=== PATIENT | female | born 1980 | race Caucasian/White ===

== ENCOUNTER 2018-12-21 12:04 | Inpatient (IN) | payer OTHER ==
[~2018-12-21] VITALS: Ht 144.8 cm; Wt 66.9 kg
[2018-12-21 12:13] VITALS: Ht 144.8 cm; Wt 66.9 kg
--- NOTE | 2018-12-21 12:40 | TRIAGE ---
OB Triage Datetime Report Generated by CPN: 12/21/2018 12:39 Datetime: 12/21/2018 12:17 Maternal Assessment Level of Consciousness: Fully Conscious DTR's/Clonus: DTRs 1+ Headache: Denies Blurred Vision: No Respiratory Effort: Unlabored Breath Sounds, Left: Clear and Equal Breath Sounds, Right: Clear and Equal Nausea/Vomiting: Denies RUQ Epigastric Pain: Denies Facial Edema: None Labor Evaluation Frequency: 3-4 Monitor Mode: External Duration (sec)2399: 60-70 Quality: Mild Pattern: Normal: <= 5 Contractions in 10 Minutes Resting Tone [place]: Relaxed Heart Rate FHR Baseline Rate: 130 Monitor Mode: External US Variability: Moderate 6-25 bpm Accelerations: 15X15 Decelerations: None Category: Category I Pain Assessment Pain Scale: 0 Pain Presence: None/Denies Pain Type: N/A Pain Goal: 3 Membrane Status: Intact Datetime: 12/21/2018 12:11 Vaginal Exam Dilatation (cms): 2.0 Effacement (%): 50 Station: -2 Exam By: LILIBETH PETER Vaginal Bleeding: None Cervix, Consistency: Soft Cervix, Position: Posterior Presentation 'A': Cephalic Datetime: 12/21/2018 12:10 Assessment Type: Triage Maternal Assessment Level of Consciousness: Fully Conscious DTR's/Clonus: DTRs 2+; No Clonus Headache: Denies Blurred Vision: No Respiratory Effort: Unlabored; Regular Rhythm; Equal Expansion Breath Sounds, Left: Clear and Equal Breath Sounds, Right: Clear and Equal Nausea/Vomiting: Denies RUQ Epigastric Pain: Denies Lower Extremities Edema: None Degree: None Upper Extremities Edema: None Degree: None Facial Edema: None Fall Risk Assessment History of Falling: (0) No Secondary Diagnosis: (0) No Ambulatory Aid: (0) Bedrest/Nurse Assist IV Therapy: (0) No Gait: (0) Normal/Bedrest/Immobile Mental Status: (0) Oriented to Own Ability Fall Score: 0 Fall Risk Score Definition: No Risk: No action required Datetime: 12/21/2018 11:53 Time of Arrival: 12/21/2018 11:53 EGA: 37.5 Arrived By: Ambulatory Arrived From: Office Chief Complaint: PT CAME IN FROM CLINIC TO R/O PIH Movement: Present Contractions: Denies/Absent Rupture of Membranes: Denies Vaginal Discharge: Denies Recent Sexual Intercouse: Denies Abdominal Trauma: Not Applicable Additional Patient Complaints: NONE Time Provider Notified: 12/21/2018 12:37 Provider Notified: HADADIAN Initial Plan: PIH PANEL, NST AND BPP
[2018-12-21] MEDS ORDERED: MISOPROSTOL 200 MCG TAB PR PRN (14:00)
[2018-12-21] MEDS ORDERED: OXYTOCIN 30 UNITS/LR 500 ML IV PRN (14:00)
[2018-12-21] MEDS ORDERED: LIDOCAINE 1% (MPF) 30 ML INJ INJ PRN (14:00)
[2018-12-21] MEDS ORDERED: METHYLERGONOVINE 0.2 MG INJ IM PRN (14:00)
[2018-12-21] MEDS ORDERED: CARBOPROST 250 MCG INJ IM PRN (14:00)
[2018-12-21] MEDS ORDERED: BUTORPHANOL 2 MG INJ IV PRN (14:00)
[2018-12-21] MEDS ORDERED: OXYTOCIN 30 UNITS/LR 500 ML IV SCH ×3 (14:00)
[2018-12-21] MEDS: LACTATED RINGER'S 1,000 ML IV SCH (14:10)
[2018-12-21] MEDS: DEXTROSE 5%-LR 1,000 ML IV SCH (15:09)
--- NOTE | 2018-12-21 19:30 | HP ---
Date/Time of Note Date/Time of Note DATE: 12/21/18 TIME: 19:24 OB - History Hx of Present Free Text/Dictation 38 years old -0-1-3 with single intrauterine at 37 weeks and 5 days with a 1 gestational diabetes and gestational hypertension was seen in clinic for visit today and was noted to have elevated blood pressure of 147/101, repeat one was 147/98. She states good movement. She denies nausea, vomiting, shortness of breath, chest pain, headache, visual changes, vaginal bleeding or LOF. Chief Complaint: Elevated blood pressure Estimated Due Date: Jan 06, 2019 : 5 Para: 3 Spontaneous : 1 Therapeutic : 0 Care: Good Care Obstetrical Complications: Gestational Diabetes, Gestational Hypertension Past Family/Social History * Past Medical, Surgical, Family and Obstetric Histories reviewed from chart. Blood Type: O- Rubella: immune RPR/VDRL: Negative GBS Status: Negative HBsAG: Negative OB Admission Exam Vital Signs Vital Signs Blood pressure 144/96, pulse rate 78/minutes, respiratory rate 16/minutes, temperature 98.6 Physical Exam HEENT: WNL Heart: Rhythm Normal Lungs: Clear Abdomen: WNL Extremities: Normal Reflexes: Normal Cervical Dilatation: 2cm Effacement: 50% Station: -2 Membranes: Intact Heart Rate: 140's Accelerations: Accelerations Present Decelerations: No Decelerations Varibility: Marked Contractions on Admission: < 5 Minutes Apart Intensity: Mild Last 72 hourBlood Glucose Bedside Glucose - 72 Hours Test 12/21/18 18:29 Bedside Glucose 92 mg/dL (70-220) Last 72 hours Lab Results CBC & BMP 12/21/18 11:46 12/21/18 13:14 Liver Function Test 12/21/18 11:46 Alanine Aminotransferase (ALT/SGPT) 14 Albumin 3.6 Alkaline Phosphatase 291 H Aspartate Amino Transf (AST/SGOT) 26 Direct Bilirubin 0.00 Total Protein 6.9 OB Assessment/Plan Other plan: 38 years old -0-1-3 with single intrauterine at 37 weeks and 5 days with A1 gestational diabetes and gestational hypertension -FHR: No sign of metabolic acidosis- Category I -Continuous EFM, toco -CBC, blood type and screen -Augmentation of labor with pitocin -Analgesia options with R/B/A discussed in detail with patient -Epidural per patient request -Please see the orders -O Neg/Rubella: Immune -GBS: Negative Admission, procedures, expectations, risks and possible complications have been discussed in detail with the patient. Risk of vaginal delivery including but not limited to bleeding, infection, cervical laceration, placental retention, injury to fetus, blood transfusion, blood transfusion related infection, risk of anesthesia, adhesion, cervical laceration, episiotomy/laceration, possible delivery with risk of bleeding, infection, injury to other organs (bowel, bladder, ureter, vessels, nerves), injury to fetus, blood transfusion, blood transfusion related infection, risk of anesthesia, scar and hernia formation, needs for future , removal of uterus or any other indicated surgery discussed with the patient. She expressed understanding and repeats the risks. All of her questions were answered. She signed the informed consent. PHYSICIAN'S VERIFICATION OF INFORMED CONSENT The patient was counseled regarding the procedure, its indications, risks, potential complications and alternatives and any questions were answered. Cons ent was obtained. PLANNED PROCEDURE/TREATMENT: Vaginal delivery, episiotomy, repair of laceration possible delivery RANJITH DAMON December 21, 2018 19:30
[2018-12-22] MEDS ORDERED: MINERAL OIL LIGHT 10 ML VIAL TOP PRN (02:00)
[2018-12-22] MEDS: LACTATED RINGER'S 1,000 ML IV SCH ×2 (05:15→13:04)
[2018-12-22] MEDS: DEXTROSE 5%-LR 1,000 ML IV SCH ×2 (07:32→18:50)
[2018-12-22] MEDS ORDERED: FENTAnyl 50 MCG/ML VIAL ONE (12:37)
[2018-12-22] MEDS ORDERED: FENTAnyl 2MCG/ML-ROPIV 0.2% 100 ML ONE (12:37)
--- NOTE | 2018-12-22 12:41 | PREAC ---
Date/Time of Note Date/Time of Note DATE: 12/22/18 TIME: 12:41 Anesthesia Eval and Record Evaluation Time Pre-Procedure Interview DATE: 12/22/18 TIME: 12:41 Age 38 Sex female NPO: Other Preoperative diagnosis labor pain Planned procedure epidural Past Medical History Past Medical History: Includes Endo: Diabetes (gestational ) Surgery & Anesthesia Issues No known issue Meds Anticoagulation: No Beta Jhonny within 24 hr: No Reason Beta Jhonny not given: Pt. not on B-Jhonny Current Medications Lactated Ringer's 1,000 ml @ 125 mls/hr Q8H IV Last administered on 12/22/18at 05:15; Admin Dose 125 MLS/HR; Start 12/21/18 at 13:43 Butorphanol Tartrate (Stadol) 2 mg Q2H PRN IV .PAIN SCALE 6-10; Start 12/21/18 at 14:00 Lidocaine (Xylocaine 1% (Mpf)) 30 ml ONCE PRN INJ .EPISIOTOMY; Start 12/21/18 at 14:00 Oxytocin/Lactated Ringer's 500 ml @ 500 mls/hr ONCE POST IV ; Start 12/21/18 at 14:00 Oxytocin/Lactated Ringer's 500 ml @ 125 mls/hr POST IV ; Start 12/21/18 at 14:00 Oxytocin/Lactated Ringer's 500 ml @ 0 mls/hr ONCE PRN IV .VAGINAL BLEEDING; Start 12/21/18 at 14:00 Methylergonovine Maleate (Methergine) 0.2 mg ONCE PRN IM .VAGINAL BLEEDING; Start 12/21/18 at 14:00 Carboprost Tromethamine (Hemabate) 250 mcg ONCE PRN IM .VAGINAL BLEEDING; Start 12/21/18 at 14:00 Misoprostol (Cytotec) 1,000 mcg ONCE PRN OR .VAGINAL BLEEDING; Start 12/21/18 at 14:00 Oxytocin/Lactated Ringer's 500 ml @ 0 mls/hr FOR AUGMENTATION IV Last administered on 12/21/18at 15:11; Admin Dose 1 MLS/HR; Start 12/21/18 at 14:00 Dextrose/Lactated Ringer's 1,000 ml @ 125 mls/hr Q8H IV Last administered on 12/22/18at 07:32; Admin Dose 125 MLS/HR; Start 12/21/18 at 14:01 Mineral Oil (Muri-Lube) 20 ml ONCE PRN TOP FOR DELIVERY; Start 12/22/18 at 02:00; Stop 12/23/18 at 01:59 Meds reviewed: Yes Allergies Coded Allergies: No Known Allergy (Unverified , 12/21/18) Allergies Reviewed: Yes Labs/Studies Labs Reviewed: Reviewed by anesthesiologist Result Diagram: 12/21/18 1146 12/21/18 1314 Laboratory Tests 12/21/18 13:14 Blood Bank Test 12/21/18 13:14 Antibody Screen NEGATIVE Blood Type O NEGATIVE Rh Immune Globulin Candidate NO test: N/A Pre-procedure Exam Airway: Adequate mouth opening, Adequate thyromental dist Mallampati: Mallampati IV Teeth: Normal Lung: Normal Heart: Normal ASA Physical Status ASA physical status: 2 Emergency: None Pre-operative Attestations Prior to commencing anesthesia and surgery, the patient was re-evaluated, there was verification of: *The patient's identity *The results of appropriate recent lab work and preoperative vital signs *The above evaluation not changing prior to induction *Anesthetic plan, risk benefits, alternative and complications discussed with patient/family; questions answered; patient/family understands, accepts and wishes to proceed. SHANEKA CRAWFORD DO December 22, 2018 12:41
[2018-12-22] MEDS ORDERED: NALOXONE (0.4 MG/ML) INJ IV PRN (13:00)
[2018-12-22] MEDS ORDERED: FENTAnyl 2MCG/ML-ROPIV 0.2% 100 ML BAG EPI SCH (13:00)
[2018-12-22] MEDS ORDERED: MISOPROSTOL 200 MCG TAB PO ONE (16:00)
[2018-12-22] MEDS ORDERED: MAGNESIUM SULFATE 4 GM/100 ML 100 ML IV SCH (17:00)
[2018-12-22] MEDS: MAGNESIUM SULFATE 20 GM/500 ML 500 ML IV SCH (17:26)
[2018-12-22 18:40] VITALS: BP 149/94; PULSE 109; RESP 18
[2018-12-22] MEDS: LACTATED RINGER'S 1,000 ML IV* SCH (18:50)
[2018-12-22] MEDS ORDERED: OXYTOCIN 30 UNITS/LR 500 ML IV SCH (18:50)
[2018-12-22 19:00] VITALS: BP 125/74; PULSE 100; RESP 19
[2018-12-22] MEDS ORDERED: MISOPROSTOL 200 MCG TAB PR PRN (19:00)
[2018-12-22] MEDS ORDERED: SENNA/DOCUSATE NA (8.6MG/50MG) TAB PO PRN (19:00)
[2018-12-22] MEDS ORDERED: DIBUCAINE 1% 30 GM OINT TOP PRN (19:00)
[2018-12-22] MEDS ORDERED: BENZOCAINE 20% 56 ML SPRAY TOP PRN (19:00)
[2018-12-22] MEDS ORDERED: OXYTOCIN 30 UNITS/LR 500 ML IV PRN (19:00)
[2018-12-22] MEDS ORDERED: ACETAMINOPHEN 325 MG TAB PO PRN (19:00)
[2018-12-22] MEDS ORDERED: CARBOPROST 250 MCG INJ IM PRN (19:00)
[2018-12-22] MEDS ORDERED: LANOLIN HPA 1 PKT TOP PRN (19:00)
[2018-12-22] MEDS ORDERED: OXYCODONE/ASPIRIN (4.88/325) TAB PO PRN (19:00)
[2018-12-22] MEDS ORDERED: WITCH HAZEL/GLYCERIN PAD PR PRN (19:00)
[2018-12-22] MEDS ORDERED: METHYLERGONOVINE 0.2 MG INJ IM PRN (19:00)
[2018-12-22] MEDS ORDERED: DIPHENHYDRAMINE 50 MG INJ IV PRN (19:00)
[2018-12-22] MEDS ORDERED: ZOLPIDEM 5 MG TAB PO PRN (19:00)
[2018-12-22] MEDS ORDERED: ONDANSETRON 4 MG INJ IV PRN (19:00)
[2018-12-22 20:00] VITALS: BP 124/73; PULSE 113; RESP 18
[2018-12-22 21:00] VITALS: BP 133/72; PULSE 112; RESP 18
[2018-12-22 22:00] VITALS: BP 131/76; PULSE 102; RESP 18
[2018-12-22 23:00] VITALS: BP_SYST 131; BP_SYST 135; BP_DIAS 73; BP_DIAS 74; PULSE 102; PULSE 103; RESP 18; RESP 20
--- NOTE | 2018-12-22 23:56 | PAC ---
Date/Time of Note Date/Time of Note DATE: 12/22/18 TIME: 23:56 Post-Anesthesia Notes Post-Anesthesia Note Last documented vital signs Vital Signs Date Temp Pulse Resp B/P (MAP) Pulse Ox O2 O2 Flow FiO2 Time Delivery Rate 12/22/18 98.6 102 18 135/73 98 Room Air 23:00 (93) Activity: WNL Respiratory function: WNL Cardiovascular function: WNL Mental status: Baseline Pain reasonably controlled: Yes Hydration appropriate: Yes Nausea/Vomiting absent: Yes SHANEKA CRAWFORD DO December 22, 2018 23:56
[2018-12-23] VITALS (18 sets, daily range): BP systolic 119–139; BP diastolic 56–75; PULSE 76–103; RESP 18–20
[2018-12-23] MEDS: IBUPROFEN 600 MG TAB PO SCH ×5 (00:19→23:38)
--- NOTE | 2018-12-23 01:41 | PN ---
Date/Time of Note Date/Time of Note DATE: 12/23/18 TIME: 01:36 OB Subjective Subjective Subjective PPD# 1 Patient is doing well. She denies nausea, vomiting, shortness of breath, chest pain, headache. She has been ambulating without difficulty, tolerating regular diet. Pain is well controlled on current medications OB Objective Objective Objective VS - Last 72 Hours, by Label Date Temp Pulse Resp B/P (MAP) Pulse Ox O2 O2 Flow FiO2 Time Delivery Rate 12/23/18 97.9 98 19 121/62 97 Room Air 01:01 (81) 12/23/18 98.0 103 20 131/74 97 Room Air 00:00 (93) 12/22/18 98.6 102 18 135/73 98 Room Air 23:00 (93) 12/22/18 99.1 102 18 131/76 96 Room Air 22:00 (94) 12/22/18 98.7 112 18 133/72 97 Room Air 21:00 (92) 12/22/18 99.4 113 18 124/73 97 Room Air 20:00 (90) 12/22/18 98.4 100 19 125/74 Room Air 19:00 (91) 12/22/18 98.5 109 18 149/94 Room Air 18:40 (112) General: AAO X 3, comfortable, NAD, appropriate mood and affect. ABD: +BS. Soft, non-tender. Uterus 2 cm below umbilicus Flank: No CVA tenderness (B/L) LE: Mild edema. No clubbing, cyanosis, thigh or calf tenderness (B/L). Homans 'sign is negative OB Assessment/Plan Other plan: 38 years old [id number] with gestational diabetes A1 and gestational hypertension s/p normal vaginal delivery at 37 weeks and 6 days. PPD#1 - AF, VSS - Baby is doing well, at bed side. She is bonding well - Contraception methods with R/B/A/FR discussed - Continue care - Discharge home tomorrow - Rx and instruction given - Follow up in 2 and 6 weeks at clinic 2) A1 gestational diabetes: Significance of performing 75 g 2-hour glucose test at 6-12 weeks after delivery discussed with patient. 3) Gestational hypertension: She is currently doing well, blood pressures are within normal limits. Observe her closely RANJITH DAMON December 23, 2018 01:41
--- NOTE | 2018-12-23 01:45 | LDN ---
Date/Time of Note Date/Time of Note DATE: 12/23/18 TIME: 01:41 Delivery Summary Late entry note. Patient delivered at 1531 on 12/22/2018 38 years old -0-1-3 with gestational diabetes A1 and gestational hypertension at 37 weeks and 6 days delivered a viable female over intact perineum. Nose and mouth suctioned. Rest of body delivered. Baby given to the nurse. Placenta delivered spontaneously and intact with three-vessel cord. Patient tolerated procedure well. Time of delivery 15:31 Weight 2955 gram-6 pound 8 ounces Height 19 inches 9 at 1 minutes and 9 at 5 minutes EBL 150 mL Weeks of Gestation 37 weeks and 6 days Placenta Delivered: Spontaneously Meconium: none Episiotomy: No Estimated blood loss: 150 Sponge & Needle done & correct: Yes All needle counts correct: Yes Any foreign bodies felt in the: No Infant Delivery Information Sex Infant Sex: female Apgars 1 Minute: 9 5 Minute: 9 10 Minute: 10 Suctioning Nose & mouth suctioned at [place]: Yes Umbilical Cord Umbilical cord with: 3 Vessels Cord Blood was obtained: Yes Mother & Baby Disposition Disposition Mom & Baby to Maternity; Good: Yes RANJITH DAMON December 23, 2018 01:45
[2018-12-23] MEDS: LACTATED RINGER'S 1,000 ML IV* SCH ×3 (02:50→18:50)
[2018-12-23] MEDS: DEXTROSE 5%-LR 1,000 ML IV SCH ×3 (02:50→18:50)
[2018-12-23] MEDS: MAGNESIUM SULFATE 20 GM/500 ML 500 ML IV SCH ×2 (03:13→17:00)
--- NOTE | 2018-12-23 18:50 | PN ---
Date/Time of Note Date/Time of Note DATE: 12/23/18 TIME: 18:48 OB Subjective Subjective Subjective breast-feeding. Has not been out of the bed yet since she has been on magne sium.. Reports decreased vaginal bleeding. Ambulating. Denies any headache, epigastric pain right upper quadrant pain. OB Objective Objective Objective VS - Last 72 Hours, by Label Date Temp Pulse Resp B/P (MAP) Pulse Ox O2 O2 Flow FiO2 Time Delivery Rate 12/23/18 97.6 86 18 132/72 97 Room Air 10:00 (92) 12/23/18 86 18 121/58 Room Air 09:00 (79) 12/23/18 97.4 83 18 124/60 96 Room Air 08:00 (81) 12/23/18 97.4 86 20 129/65 96 06:00 (86) 12/23/18 97.4 76 18 121/59 96 05:00 (79) 12/23/18 97.6 78 19 129/62 97 04:00 (84) 12/23/18 97.6 80 19 122/63 97 03:00 (82) 12/23/18 95 18 121/63 98 02:00 (82) 12/23/18 97.9 98 19 121/62 97 Room Air 01:01 (81) 12/23/18 98.0 103 20 131/74 97 Room Air 00:00 (93) 12/22/18 98.6 102 18 135/73 98 Room Air 23:00 (93) 12/22/18 99.1 102 18 131/76 96 Room Air 22:00 (94) 12/22/18 98.7 112 18 133/72 97 Room Air 21:00 (92) 12/22/18 99.4 113 18 124/73 97 Room Air 20:00 (90) 12/22/18 98.4 100 19 125/74 Room Air 19:00 (91) 12/22/18 98.5 109 18 149/94 Room Air 18:40 (112) Appearance: Alert and oriented x4 does not appear to be in any acute distress Abdomen: Soft, gravid, fundus palpable nontender at the level of umbilicus Breast: No evidence of mastitis or fissure Extremities: No cord palpable no calf tenderness no edema SCDs are on Lungs: Clear to auscultation bilaterally CV RRR Laboratory Tests Test 12/23/18 00:42 12/23/18 06:48 12/23/18 12:32 Magnesium Level 4.7 H 6.1 *H 5.4 *H White Blood Count 12.0 H Red Blood Count 4.30 Hemoglobin 12.9 Hematocrit 38.8 Mean Corpuscular Volume 90.2 Mean Corpuscular Hemoglobin 30.0 Mean Corpuscular Hemoglobin Concent 33.2 Red Cell Distribution Width 13.2 Platelet Count 167 Mean Platelet Volume 11.3 H Immature Granulocytes % 0.500 H Neutrophils % 77.6 H Lymphocytes % 16.3 Monocytes % 5.0 Eosinophils % 0.3 Basophils % 0.3 Nucleated Red Blood Cells % 0.0 Immature Granulocytes # 0.060 H Neutrophils # 9.3 H Lymphocytes # 2.0 Monocytes # 0.6 Eosinophils # 0.0 Basophils # 0.0 Nucleated Red Blood Cells # 0.0 OB Assessment/Plan Other Assessment: Status post On magnesium due to elevated blood pressure and preeclampsia No evidence of mag toxicity Asymptomatic Adequate urine output Will stop magnesium 24 hours after started Routine care Continue watching blood pressure closely ELIESER GARCIA MD December 23, 2018 18:50
[2018-12-24 03:15] VITALS: BP 120/62; PULSE 75; RESP 17
[2018-12-24] MEDS: IBUPROFEN 600 MG TAB PO SCH ×2 (05:46→12:34)
[2018-12-24 08:00] VITALS: BP 129/90; PULSE 70; RESP 18
[2018-12-24] MEDS ORDERED: MEASLES,MUMPS,RUBELLA VACCINE INJ SC* ONE (09:00)
[2018-12-24] MEDS ORDERED: DIPHTH/TET/ACEL PERTUSS (ADULT) 0.5 ML VIAL IM* ONE (09:00)
--- NOTE | 2018-12-24 10:14 | PD.PPDC ---
GUM DIPPER Discharge Instruction Diagnosis Oavoq1Gp Final Diagnosis: Locii8b s/p GHTN Condition [id number] Patient Condition: Asriq7a Good Diet Ielmx4La Diet: Buhoz6r Resume Regular Diet Activity/Restrictions [id number] Activity: Uxpct8u May Shower Rydtg9Dk Restrictions: Xzxlw1b No Lifting No Sexual Activity Nothing in the Vagina No Ch[place]ar Follow-up Follow-up with Physician: 2, Week/Weeks Return to clinic for [id number] PAD CUTTER Instructions: Tprgm0d Fever greater than 101 Chills Worsening abdominal pain Excessive Vaginal Bleeding More than 2 pads per hour Unable to tolerate diet [id number] OB Instructions: Tbvrc2m Breast Tenderness Depression Blurried Vision Headache KURT SOL MD December 24, 2018 10:14
--- NOTE | 2018-12-24 10:17 | DS ---
Date/Time of Note Date/Time of Note DATE: 12/24/18 TIME: 10:15 Obstetrical Discharge Record Final Diagnosis Final Diagnosis: Term delivered Complications Preg induced Hypertension Induction: Yes Rupture of Membranes: No Condition on Discharge Physical Assessment Last Vitals: VSS afebrile Voiding: Yes Bowel Movement: Yes Breast: Soft, non-tender Fundus: Firm Episiotomy: feet is swollen Calf Tenderness: No Patient Condition: Stable KURT SOL MD December 24, 2018 10:17
--- NOTE | 2018-12-25 15:26 | DELSUM ---
Delivery Summary A-C Datetime Report Generated by CPN: 12/25/2018 15:26 DELIVERY PERSONNEL Valuer: Brooke Wadea MATERNAL INFORMATION Delivery Anesthesia: Epidural Medications in Delivery: pitocin Delivery QBL (ml): 200 Placenta Cultured: No Maternal Complications: Other Other Maternal Complications: High BP's LABOR SUMMARY EDC: 01/06/2019 00:00 No. Babies in Womb: 1 Attempted: No Labor Anesthesia: Epidural LABOR INFORMATION Reason for Induction: Gest. HTN/PreEclam/Eclamp Onset of Labor: 12/22/2018 10:00 Complete Dilatation: 12/22/2018 15:18 Oxytocin: N/A Group B Beta Strep: Negative Antibiotics # of Doses: 0 Steroids Given: None Reason Steroids Not Administered: Not Applicable MEMBRANES Membranes Rupture Method: Artificial Rupture of Membranes: 12/22/2018 11:27 Length of Rupture (hr): 4.07 Amniotic Fluid Color: Clear Amniotic Fluid Amount: Moderate STAGES OF LABOR Stage 1 hr: 5 Stage 1 min: 18 Stage 2 hr: 0 Stage 2 min: 13 Stage 3 hr: 0 Stage 3 min: 2 Total Time in Labor hr: 5 Total Time in Labor min: 33 VAGINAL DELIVERY Episiotomy: None Laceration Extension: N/A Laceration Type: None Laceration Repair: Not Applicable Initial Vag Sponge Count: 10 Final Vag Sponge Count: 10 Initial Vag Sharps Count: 1 Final Vag Sharps Count: 1 Sponge Count Correct: Yes Sharps Count Correct: Yes BABY A INFORMATION Infant Delivery Date/Time: 12/22/2018 15:31 Method of Delivery: Vaginal Born in Route : No : N/A Forceps: N/A Vacuum Extraction: N/A Shoulder Dystocia : N/A SHOULDER DYSTOCIA BABY A Delivery Date/Time: 12/22/2018 15:31 PRESENTATION/POSITION BABY A Presentation: Cephalic Cephalic Presentation: Vertex Vertex Position: Left Occipital Posterior Breech Presentation: N/A PLACENTA INFORMATION BABY A Placenta Delivery Time : 12/22/2018 15:33 Placenta Method of Delivery: Spontaneous Placenta Status: Delivered SCORES BABY A Heart Rate 1 min: >100 bpm Resp Effort 1 min: Good Cry Reflex Irritability 1 min: Cough/Sneeze/Pulls Away Muscle Tone 1 min: Active Motion Color 1 min: Body Spooner, Extremit Blue Resuscitation Effort 1 min: Tactile Stimulation SCORE 1 MIN: 9 Heart Rate 5 min: >100 bpm Resp Effort 5 min: Good Cry Reflex Irritability 5 min: Cough/Sneeze/Pulls Away Muscle Tone 5 min: Active Motion Color 5 min: Body [place], Extremit Blue Resuscitation Effort 5 min: Tactile Stimulation SCORE 5 MIN: 9 INFORMATION BABY A Gestational Age at Delivery: 37.6 Gestational Status: Early Term- 37- 38.6 Weeks Outcome : Liveborn Infant Condition : Stable Infant Sex: Female IDENTIFICATION/MEDS BABY A ID Band Number: [id number] ID Band Location: Right Leg; Left Arm Sensor Applied: Yes Sensor Number: [id number] Sensor Location : Cord Clamp Vitamin K Given : Not Given Erythromycin Given: Not Given WEIGHT/LENGTH BABY A Birthweight (gm): 2955 Infant Weight (lb): 6 Infant Weight (oz): 8 Infant Length (in): 19.00 Length (cm): 48.26 CORD INFORMATION BABY A No. Cord Vessels: 3 Nuchal Cord : N/A Cord Blood Taken: Yes Suction: Mouth; Nose ASSESSMENT BABY A Infant Complications: None Physical Findings at Delivery: Within Normal Limits Respirations: Appears Normal Heat Treating Operator/ALS Called : No Care By: Amalia Mendenhall RN Transferred To: Remains with Mother
== END 2018-12-24 15:26 | disposition home or self-care (01) | DRG 807 ==
LOC: OBT 12:04 → L-D 12:05 → OBT 12:36 → L-D 14:30 → PP1 12-22 18:26
PROVIDERS: ADMIT Obstetrics & Gynecology; ATTEND Obstetrics & Gynecology
PROC: 10E0XZZ Delivery of Products of Conception, External Approach (ICD-10-PCS; principal; 2018-12-23)
DX: O13.4 Gestational [pregnancy-induced] hypertension without significant proteinuria, complicating childbirth (principal); Z37.0 Single live birth; O14.94 Unspecified pre-eclampsia, complicating childbirth; O24.420 Gestational diabetes mellitus in childbirth, diet controlled; Z3A.37 37 weeks gestation of pregnancy
CPT/HCPCS: 62322; 76815; 76818; 80053; 81003; 82947; 82962; 83735; 84560; 85025; 85610; 85730; 86592; 86850; 86885; 86900; 86901; G0463; J2590; J2790; J3010; J3475; J7120; J7121

== ENCOUNTER 2019-04-18 09:55 | Day surgery (SDC) | payer OTHER ==
[~2019-04-18] VITALS: Ht 144.8 cm; Wt 61.7 kg
[2019-04-18] VITALS (14 sets, daily range): BP systolic 101–141; BP diastolic 59–78; PULSE 62–88; RESP 10–21; Ht 144.8 cm; Wt 61.7 kg
[2019-04-18] MEDS ORDERED: ONDANSETRON 4 MG INJ ONE (11:26)
[2019-04-18] MEDS ORDERED: CEFAZOLIN 1 GM INJ ONE (11:26)
[2019-04-18] MEDS ORDERED: FENTAnyl 50 MCG/ML VIAL ONE (11:26)
[2019-04-18] MEDS ORDERED: MIDAZOLAM 1 MG/ML 2 ML INJ ONE (11:26)
[2019-04-18] MEDS ORDERED: ROCURONIUM 50 MG INJ ONE (11:26)
[2019-04-18] MEDS ORDERED: GLYCOPYRROLATE 0.4 MG INJ ONE (11:26)
[2019-04-18] MEDS ORDERED: PROPOFOL 20 ML ONE (11:26)
[2019-04-18] MEDS ORDERED: NEOSTIGMINE 3 MG/3 ML SYRINGE ONE (11:26)
[2019-04-18] MEDS ORDERED: DEXAMETHASONE 4 MG/ML 5 ML INJ ONE (11:27)
[2019-04-18] MEDS ORDERED: ROPIVACAINE 0.5 % 30 ML VIAL ONE (11:40)
[2019-04-18] MEDS ORDERED: FENTAnyl 50 MCG/ML VIAL IV PRN ×3 (12:00)
[2019-04-18] MEDS ORDERED: DIPHENHYDRAMINE 50 MG INJ IV PRN (12:00)
[2019-04-18] MEDS ORDERED: HYDROmorphONE 1 MG/5 ML IV SYRINGE IV PRN ×3 (12:00)
[2019-04-18] MEDS ORDERED: TRIMETHOBENZAMIDE 100 MG/ML VIAL IM PRN (12:00)
[2019-04-18] MEDS ORDERED: OXYCODONE/ACETAMINOPHEN (5/325) TAB PO PRN ×2 (12:00)
[2019-04-18] MEDS ORDERED: IPRATROPIUM (NEB) 0.5 MG/2.5 ML AMP HHN PRN (12:00)
[2019-04-18] MEDS ORDERED: hydrALAzine 20 MG INJ IV PRN (12:00)
[2019-04-18] MEDS ORDERED: ALBUTEROL 0.083% (NEB) 2.5 MG/3 ML AMP HHN PRN (12:00)
[2019-04-18] MEDS ORDERED: MIDAZOLAM 1 MG/ML 2 ML INJ IV PRN (12:00)
[2019-04-18] MEDS ORDERED: LABETALOL HCL 20MG INJ IV PRN (12:00)
[2019-04-18] MEDS ORDERED: LACTATED RINGER'S 1,000 ML IV SCH (12:00)
[2019-04-18] MEDS ORDERED: ONDANSETRON 4 MG INJ IV PRN (12:00)
[2019-04-18] MEDS ORDERED: EPHEDrine 25 MG/5 ML SYG IV PRN (12:00)
[2019-04-18] MEDS ORDERED: MEPERIDINE 25 MG INJ IV PRN (12:00)
== END 2019-04-18 15:21 | disposition home or self-care (01) ==
LOC: SDS 09:55
PROVIDERS: ATTEND Obstetrics & Gynecology
DX: Z30.2 Encounter for sterilization (principal)
CPT/HCPCS: 58670; 84702; 84703; 85025; 86850; 86900; 86901; J0690; J1100; J1170; J2175; J2250; J2405; J2710; J2795; J3010; Z7512; Z7610